=== PATIENT | female | born 1965 | race Caucasian/White ===

== ENCOUNTER → 2017-01-23 | Outpatient (CLI) | payer OTHER ==
--- NOTE | 2017-01-23 15:06 | REP ---
LEFT TOES, FOUR VIEWS: HISTORY: Pain. There is a nondisplaced fracture of the proximal phalange of the fourth digit. There is no dislocation. The joint spaces are normal in appearance. IMPRESSION: Fracture of the proximal phalange of the fourth digit. Signed by Chris Meraz MD 01/23/2017 03:07 P
== END ==
LOC: M ADAMS 13:46
PROVIDERS: ATTEND Physician Assistant
DX: S92.515A Nondisplaced fracture of proximal phalanx of left lesser toe(s), initial encounter for closed fracture (principal); X58.XXXA Exposure to other specified factors, initial encounter; Y92.9 Unspecified place or not applicable; Y93.9 Activity, unspecified; Y99.9 Unspecified external cause status